=== PATIENT | female | born 1990 | race Caucasian/White ===

== ENCOUNTER 2021-05-26 09:18 | Emergency (ER) | payer OTHER ==
[~2021-05-26] VITALS: Ht 165.1 cm; Wt 84.3 kg
[~2021-05-26 09:18] MED LIST: DEXT30CA6 PO; TRI SPRINTEC PO
[2021-05-26 09:29] VITALS: BP 114/83
--- NOTE | 2021-05-26 09:45 | PHYS DOC ---
Past History Past Medical History: Other Past Surgical History: Other Additional Past Surgical Histo: cysts on neck removed Smoking: Cigarettes, Less than 1pk/day Alcohol Use: Occasionally Drug Use: None Adult General Chief Complaint Chief Complaint: ABDOMINAL PAIN HPI HPI Patient is a 31-year-old female presenting for right lower quadrant pain. Onset was 1 day ago without any known inciting event, trauma, mechanism of injury, ingestion or known exposure. Palpation makes worse, nothing known makes better. Reports pain is focal and constant to right lower quadrant that is manageable when she is completely still. She has not taken anything for the pain. She has no history of any intra-abdominal surgeries. She does have history of known right sided ovarian cyst and x1 prior vaginal delivery that was uncomplicated. She admits she had her Mirena IUD removed in January 2021 and denies any noteworthy vaginal bleeding or other urinary symptoms Review of Systems Review of Systems Fourteen body systems of review of systems have been reviewed. See HPI for pertinent positives and negative responses, other barnes all other systems are negative, non-pertinent or non-contributory Allergies Allergies Allergies Coded Allergies Type Severity Reaction Last Updated Verified Sulfa (Sulfonamide Antibiotics) Allergy Unknown Rash 01/30/14 Yes Physical Exam Physical Exam Constitutional: Well developed, well nourished, no acute distress, non-toxic appearance. HENT: Normocephalic, atraumatic, bilateral external ears normal, oropharynx moist, no oral exudates, nose normal. Eyes: PERRLA, EOMI, conjunctiva normal, no discharge. Neck: Normal range of motion, no tenderness, supple, no stridor. Cardiovascular: Heart rate regular, sinus rhythm, no murmurs rubs or gallops Lungs & Thorax: Bilateral breath sounds clear to auscultation Abdomen: Bowel sounds normal, soft, tenderness to right lower quadrant with guarding present, no rebound, no masses, no pulsatile masses. Nonsurgical abdomen, no peritoneal signs, negative heel strike Skin: Warm, dry, no erythema, no rash. Back: No tenderness, no CVA tenderness. Extremities: No tenderness, no cyanosis, no clubbing, ROM intact, no edema. Neurologic: Alert and oriented X 3, grossly normal motor & sensory function, no focal deficits noted. Psychologic: Anxious affect and mood Current Patient Data Vital Signs Vital Signs Date Time Temp Pulse Resp B/P (MAP) Pulse Ox O2 Delivery O2 Flow Rate FiO2 9/15/21 09:29 97.7 103 18 114/83 (93) 96 Lab Results Laboratory Tests Test 05/26/21 09:51 White Blood Count 13.9 x10^3/uL Red Blood Count 4.42 x10^6/uL Hemoglobin 13.0 g/dL Hematocrit 39.5 % Mean Corpuscular Volume 89 fL Mean Corpuscular Hemoglobin 29 pg Mean Corpuscular Hemoglobin Concent 33 g/dL Red Cell Distribution Width 12.7 % Platelet Count 240 x10^3/uL Neutrophils (%) (Auto) 83 % Lymphocytes (%) (Auto) 10 % Monocytes (%) (Auto) 7 % Eosinophils (%) (Auto) 1 % Basophils (%) (Auto) 0 % Neutrophils # (Auto) 11.5 x10^3uL Lymphocytes # (Auto) 1.4 x10^3/uL Monocytes # (Auto) 1.0 x10^3/uL Eosinophils # (Auto) 0.1 x10^3/uL Basophils # (Auto) 0.0 x10^3/uL Maternal Serum HCG Beta Subunit 1 mIU/mL Sodium Level 136 mmol/L Potassium Level 3.7 mmol/L Chloride Level 101 mmol/L Carbon Dioxide Level 29 mmol/L Anion Gap 6 Blood Urea Nitrogen 11 mg/dL Creatinine 0.6 mg/dL Estimated GFR (Cockcroft-Gault) 117.4 BUN/Creatinine Ratio 18 Glucose Level 97 mg/dL Calcium Level 8.8 mg/dL Total Bilirubin 0.5 mg/dL Aspartate Amino Transf (AST/SGOT) 13 U/L Alanine Aminotransferase (ALT/SGPT) 24 U/L Alkaline Phosphatase 81 U/L Total Protein 7.2 g/dL Albumin 3.5 g/dL Albumin/Globulin Ratio 0.9 Current Medications Medications (Trade) Dose Ordered Sig/Jay Route PRN Reason Start Time Stop Time Status Last Admin Dose Admin Ondansetron HCl (Zofran) 4 mg 1X ONCE IVP 05/26/21 09:45 05/26/21 09:52 DC 05/26/21 10:36 Fentanyl Citrate (Fentanyl 2ml Vial) 50 mcg 1X ONCE IVP 05/26/21 09:45 05/26/21 09:52 DC 05/26/21 10:36 Iohexol (Omnipaque 300 Mg/ml) 75 ml 1X ONCE IV 05/26/21 11:15 05/26/21 11:17 DC Fentanyl Citrate (Fentanyl 2ml Vial) 75 mcg 1X ONCE IVP 05/26/21 12:00 05/26/21 12:01 DC 05/26/21 12:00 Cefoxitin Sodium 2 gm/Sodium Chloride 100 ml @ 200 mls/hr Q8HRS IV 05/26/21 14:00 Fentanyl Citrate (Fentanyl 2ml Vial) 50 mcg 1X ONCE IVP 05/26/21 13:15 05/26/21 13:16 DC Fentanyl Citrate (Fentanyl 2ml Vial) 50 mcg 1X ONCE IVP 05/26/21 13:15 05/26/21 13:16 DC EKG EKG [] Radiology/Procedures Radiology/Procedures INDICATION: Reason: RLQ PAIN / COMPARISON: None. TECHNIQUE: Grayscale and color ultrasound images uterus and adnexa. Transabdominal and transvaginal images obtained. Transvaginal images were needed to better visualize structures that were limited on transabdominal i maging. FINDINGS: Uterus: 85 x 58 x 44 mm. 6 mm endometrial stripe. Small amount of fluid within. Right Ovary: 38 x 26 x 24 mm. Left Ovary: 34 x 26 x 17 mm. Vascular flow identified to bilateral ovaries. Moderate free fluid. IMPRESSION: * Vascular flow is seen to the ovaries. * Moderate free fluid in the pelvis which is more than typically seen. * Tubular structure seen in the right lower quadrant but difficult to tell if this is secondary to a small bowel loop or the appendix and the appendix is not well evaluated on this exam. * There is some fluid within the endometrial canal. Electronically signed by: Dutch Garcia MD (05/26/2021 10:58 AM) DESKTOP- [id number] //////////////////////////////////////// CT ABDOMEN+PELVIS W History: Right lower quadrant pain. Comparison: CT abdomen and pelvis 01/30/2014. Technique: CT abdomen pelvis with intravenous contrast. Findings: In the right lower quadrant there is a dilated, approximately 1.2 cm diameter appendix with indistinct margins at the tip, abundant adjacent inflammatory fat stranding periappendiceal phlegmonous change. A small peripherally calcified centrally lucent density measuring approximately 5 mm diameter may represent appendicolith, coronal image 25. Adjacent reactive adenopathy in the right lower quadrant. There are small pelvic free fluid. No intraperitoneal free air. The lung bases are clear. Liver and spleen are unremarkable. The gallbladder, pancreas, adrenals and kidneys are unremarkable. The small bowel is within normal limits. No evidence of obstruction. The cecal wall is minimally thickened adjacent to the appendiceal inflammatory changes. The remainder of the colon is within normal limits. Unremarkable uterus. Multi follicular ovaries. Vasculature is within normal limits. Soft tissues and osseous structures are unremarkable. Impression: 1. Acute appendicitis with periappendiceal phlegmonous change and a suspected peripherally dense 5 mm appendicolith. Heart Score C/O Chest Pain: No Risk Factors: Risk Factors: DM, Current or recent (<one month) smoker, HTN, HLP, family history of CAD, obesity. Risk Scores: Risk Factors: DM, Current or recent (<one month) smoker, HTN, HLP, family history of CAD, obesity. Course & Med Decision Making Course & Med Decision Making ABCs unremarkable HPI, physical exam and comprehensive ER work-up concerning for acute appendicitis. Patient given IV fluids, fentanyl, Zofran and 2 g cefoxitin with improvement in symptoms General surgery attending contacted at [facility] and case reviewed, he agreed need for transfer for surgical intervention I contacted hospitalist at [facility] and he agreed to current management and transfer for surgical consultation and care I updated patient and mother at bedside on plan of care that included hospital transfer and they were initially wanting to travel POV. I recommended against this as patient had already received IV pain medication with plans for IV antibiotics to start Risk first benefits discussed with both patient and mother, they were aware though risks of driving in their own vehicle. Ultimately, they were amenable to transfer via ambulance. All questions and concerns addressed prior to ER transfer to [facility] for admission Dragon Disclaimer Dragon Disclaimer This electronic medical record was generated, in whole or in part, using a voice recognition dictation system. Departure Departure: Impression: Primary Impression: Appendicitis Disposition: [address] [facility] ([place]) Admitting Physician: Other (DR GONSALEZ) Condition: GUARDED Referrals: JAI HERBERT (PCP) NEPTALI JAQUEZ DO May 26, 2021 09:45
[2021-05-26 10:10] LABS: BASO % 0 % (0-3); EOS # 0.1 x10^3/uL (0.0-0.7); EOS % 1 % (0-3); HEMATOCRIT 39.5 % (36.0-47.0); LYMPH # 1.4 x10^3/uL (1.0-4.8); LYMPH % 10 % (24-48); MEAN CORPUSCULAR HEMOGLOBIN 29 pg (25-35); MEAN CORPUSCULAR HGB CONC 33 g/dL (31-37); MEAN CORPUSCULAR VOLUME 89 fL (79-100); MONO % 7 % (0-9); NEUT # 11.5 x10^3uL (1.8-7.7); NEUT % 83 % (31-73); PLATELET COUNT 240 x10^3/uL (140-400); RED BLOOD COUNT 4.42 x10^6/uL (3.50-5.40); RED CELL DISTRIBUTION WIDTH 12.7 % (11.5-14.5); WHITE BLOOD COUNT 13.9 x10^3/uL (4.0-11.0)
[2021-05-26 10:18] LABS: CALCIUM 8.8 mg/dL (8.5-10.1); CREATININE 0.6 mg/dL (0.6-1.0); GFR 117.4; POTASSIUM 3.7 mmol/L (3.5-5.1)
[2021-05-26 10:25] LABS: ALBUMIN 3.5 g/dL (3.4-5.0); ALBUMIN/GLOBULIN RATIO 0.9 (1.0-1.7); TOTAL BILIRUBIN 0.5 mg/dL (0.2-1.0); TOTAL PROTEIN 7.2 g/dL (6.4-8.2)
[2021-05-26] MEDS: ONDANSETRON PF 4 MG/2 ML VIAL. IVP ONE (10:36)
--- NOTE | 2021-05-26 11:00 | RAD ---
INDICATION: Reason: RLQ PAIN / COMPARISON: None. TECHNIQUE: Grayscale and color ultrasound images uterus and adnexa. Transabdominal and transvaginal images obtained. Transvaginal images were needed to better visualize structures that were limited on transabdominal imaging. FINDINGS: Uterus: 85 x 58 x 44 mm. 6 mm endometrial stripe. Small amount of fluid within. Right Ovary: 38 x 26 x 24 mm. Left Ovary: 34 x 26 x 17 mm. Vascular flow identified to bilateral ovaries. Moderate free fluid. IMPRESSION: * Vascular flow is seen to the ovaries. * Moderate free fluid in the pelvis which is more than typically seen. * Tubular structure seen in the right lower quadrant but difficult to tell if this is secondary to a small bowel loop or the appendix and the appendix is not well evaluated on this exam. * There is some fluid within the endometrial canal. Electronically signed by: Dutch Garcia MD (05/26/2021 10:58 AM) [id number]
[2021-05-26] MEDS ORDERED: IOHEXOL 300 MG/ML 75 ML VIAL. IV ONE (11:15)
--- NOTE | 2021-05-26 11:46 | RAD ---
CT ABDOMEN+PELVIS W History: Right lower quadrant pain. Comparison: CT abdomen and pelvis 01/30/2014. Technique: CT abdomen pelvis with intravenous contrast. Findings: In the right lower quadrant there is a dilated, approximately 1.2 cm diameter appendix with indistinc t margins at the tip, abundant adjacent inflammatory fat stranding periappendiceal phlegmonous change . A small peripherally calcified centrally lucent density measuring approximately 5 mm diameter may r epresent appendicolith, coronal image 25. Adjacent reactive adenopathy in the right lower quadrant. T here are small pelvic free fluid. No intraperitoneal free air. The lung bases are clear. Liver and spleen are unremarkable. The gallbladder, pancreas, adrenals and kidneys are unremarkable. The small bowel is within normal limits. No evidence of obstruction. The ce anand wall is minimally thickened adjacent to the appendiceal inflammatory changes. The remainder of th e colon is within normal limits. Unremarkable uterus. Multi follicular ovaries. Vasculature is within normal limits. Soft tissues and osseous structures are unremarkable. Impression: 1. Acute appendicitis with periappendiceal phlegmonous change and a suspected peripherally dense 5 m m appendicolith. ------ Exposure: One or more of the following individualized dose reduction techniques were utilized for thi s examination: 1. Automated exposure control 2. Adjustment of the mA and/or kV according to patient size 3. Use of iterative reconstruction technique. Electronically signed by: Naseem Cannon MD (05/26/2021 11:44 AM) [id number]
== END 2021-05-26 13:15 | disposition short-term general hospital (02) ==
LOC: ER 09:18
DX: K37 Unspecified appendicitis (principal); F17.210 Nicotine dependence, cigarettes, uncomplicated; Z88.2 Allergy status to sulfonamides
CPT/HCPCS: 36415; 74177; 76830; 76856; 80053; 84702; 85025; 96374; 96375; 96376; 99285; J2405; J3010